=== PATIENT | female | born 1940 | race African-American/Black ===

== ENCOUNTER 2018-09-30 11:13 | Emergency (ER) | payer MEDICARE, MEDICAID ==
[~2018-09-30] VITALS: Ht 162.6 cm; Wt 60.0 kg
[~2018-09-30 11:13] MED LIST: AMLO2.5T45 PO; ATOR20TA65 PO; FERR324T4 PO; FURO20TA4 PO; HYDR-4134 PO; LEVE500T19 PO; LOSA100T14 PO; NITR0.4T49 SL; POTA10TA15 PO
[2018-09-30 12:30] LABS: CHLORIDE 105 mEq/L (98-107)
[2018-09-30 12:32] LABS: HEMATOCRIT. 26.2 % (36.0-48.0); HEMOGLOBIN. 8.5 g/dL (12.0-16.0); MEAN CORPUSCULAR HEMOGLOBIN 23.6 pg (28.0-32.0); MEAN CORPUSCULAR VOLUME 72.5 fL (81.0-99.0); MEAN PLATELET VOLUME 8.5 fl (7.4-10.4); PLATELET 264 x1000/uL (130-400); RED BLOOD CELL COUNT 3.61 mill/uL (4.2-5.4); RED CELL DISTRIBUTION WIDTH 21.8 % (11.6-14.6)
[2018-09-30 12:48] LABS: PROTHROMBIN TIME 10.5 sec (9.1-11.1)
[2018-09-30 13:01] LABS: PLATELET ESTIMATE NORMAL
[2018-09-30] MEDS ORDERED: POTASSIUM CHLORIDE 20MEQ/PACKET PO ONE (13:30)
[2018-09-30] MEDS ORDERED: KCL 20MEQ/100ML PREMIX 100 ML IV ONE (13:30)
[2018-09-30 14:45] VITALS: BP 163/90
[2018-10-11] MEDS ORDERED: ASCO500C15 MT (22:31)
[2018-10-11] MEDS ORDERED: METO25TA6 MT (22:31)
[2018-10-11] MEDS ORDERED: CLOT15CR2 TP (22:31)
[2018-10-11] MEDS ORDERED: PANT40SU MT (22:31)
[2018-10-11] MEDS ORDERED: CLON0.1T MT (22:31)
[2018-10-11] MEDS ORDERED: ACET325T52 PO (22:31)
[2018-10-11] MEDS ORDERED: DOCU-150 MT (22:31)
[2018-10-11] MEDS ORDERED: FAMO20TA8 PO (22:31)
[2018-10-11] MEDS ORDERED: INSLIS SUBCUT (23:17)
== END 2018-09-30 15:41 | disposition home or self-care (01) ==
LOC: ER 11:28
DX: D50.9 Iron deficiency anemia, unspecified (principal); E87.6 Hypokalemia; E88.09 Other disorders of plasma-protein metabolism, not elsewhere classified; E11.65 Type 2 diabetes mellitus with hyperglycemia; I10 Essential (primary) hypertension; Z86.73 Personal history of transient ischemic attack (TIA), and cerebral infarction without residual deficits; Z98.61 Coronary angioplasty status; Z79.899 Other long term (current) drug therapy; Z88.2 Allergy status to sulfonamides
CPT/HCPCS: 36415; 86850; 86900; 99284